=== PATIENT | male | born 1965 | race Two or more races ===

== ENCOUNTER 2024-09-01 09:51 | Emergency (ER) | payer MEDICAID ==
[~2024-09-01] VITALS: Ht 167.6 cm; Wt 109.1 kg
[2024-09-01] MEDS ORDERED: METF-1211 PO (10:01)
[2024-09-01] MEDS ORDERED: ATOR10TA PO (10:01)
[2024-09-01] MEDS ORDERED: LOSA-381 PO (10:01)
[2024-09-01 10:21] LABS: COVID AG,FIA SOURCE NASAL SWAB
[2024-09-01 10:26] LABS: BASOPHILS % (AUTO) 0.6 % (0.0-2.0); EOSINOPHILS % (AUTO) 2.1 % (1.0-6.0); HEMATOCRIT 42.4 % (41-53); HEMOGLOBIN 14.3 g/dL (13.5-17.5); LYMPHOCYTES # (AUTO) 1.2 K/uL (1.0-4.8); LYMPHOCYTES % (AUTO) 24.6 % (22.0-44.0); MEAN CORPUSCULAR HEMOGLOBIN 33.1 pg (26.0-34.0); MEAN CORPUSCULAR HGB CONC 33.7 G/dL (31.0-37.0); MEAN CORPUSCULAR VOLUME 98 fL (80-100); MONOCYTES # (AUTO) 0.4 K/uL (0.1-1.0); MONOCYTES % (AUTO) 7.5 % (2.0-9.0); NEUTROPHILS # (AUTO) 3.2 K/uL (1.8-7.7); NEUTROPHILS % (AUTO) 65.2 % (40.0-70.0); PLATELET COUNT (AUTO) 223 K/uL (150-450); RED BLOOD CELL COUNT(AUTO) 4.32 MIL/uL (4.50-5.90); RED CELL DISTRIBUTION WIDTH 14.5 % (11.5-14.5); WHITE BLOOD COUNT (AUTO) 4.8 K/uL (4.5-11.0)
[2024-09-01 10:32] LABS: CALCIUM, TOTAL 9.6 mg/dL (8.8-10.5); CREATININE 1.97 mg/dL (0.60-1.30); POTASSIUM 3.5 mmol/L (3.5-5.1)
[2024-09-01 10:40] LABS: TROPONIN I-HIGH SENSITIVITY 11 ng/L (<76)
[2024-09-01 10:41] LABS: ALBUMIN 3.8 g/dL (3.4-5.0); BILIRUBIN,DIRECT 0.3 mg/dL (0.00-0.20); BILIRUBIN,TOTAL 0.9 mg/dL (0.1-1.0); TOTAL PROTEIN, SERUM 7.9 g/dL (6.4-8.2)
[2024-09-01 11:01] LABS: SARS-COV2 (COVID) ANTIGEN,FIA Negative (Negative)
[2024-09-01 11:02] LABS: INFLUENZA TYPE A NEGATIVE FOR TYPE A (NEGATIVE); INFLUENZA TYPE B NEGATIVE FOR TYPE B (NEGATIVE)
[2024-09-01] MEDS: SODIUM CHLORIDE 0.9% 1,000 ML IV ONE (11:14)
[2024-09-01] MEDS: ACETAMINOPHEN 500 MG TABLET PO ONE (11:16)
[2024-09-01 11:45] LABS: THYROID STIMULATING HORMONE 0.66 uIU/mL (0.36-3.74)
[2024-09-01 13:35] LABS: APPEARANCE,URINE CLEAR (CLEAR); BILIRUBIN,URINE NEGATIVE (NEGATIVE); COLOR,URINE YELLOW (YELLOW); GLUCOSE, URINE (UA) 300-500 mg/dL (NEGATIVE); KETONES,URINE NEGATIVE (NEGATIVE); LEUKOCYTE ESTERASE ,URINE NEGATIVE (NEGATIVE); NITRATE,URINE NEGATIVE (NEGATIVE); OCCULT BLOOD,URINE NEGATIVE (NEGATIVE); PH,URINE 5.5 (5.0-8.0); PROTEIN,URINE NEGATIVE (NEGATIVE); SPECIFIC GRAVITIY, URINE 1.017 (1.003-1.030); UROBILINOGEN,URINE <=1.0 mg/dL (<=1.0)
[2024-09-01 13:47] LABS: BACTERIA,URINE None Seen /HPF (None Seen); RBC,URINE None Seen /HPF (0-2); WBC,URINE None Seen /HPF (0-5)
[2024-09-01 14:33] VITALS: BP 120/87; PULSE 92; RESP 18; TEMP 99.8; O2SAT 98
== END 2024-09-01 14:50 | disposition home or self-care (01) ==
LOC: EMS 09:51
DX: R11.2 Nausea with vomiting, unspecified (principal); J06.9 Acute upper respiratory infection, unspecified; E11.9 Type 2 diabetes mellitus without complications; I10 Essential (primary) hypertension; E78.00 Pure hypercholesterolemia, unspecified; Z79.899 Other long term (current) drug therapy; Z20.822 Contact with and (suspected) exposure to COVID-19
CPT/HCPCS: 99285; 96360; 71045; 87426; 80048; 80076; 81001; 83690; 83880; 87420; 84443; 84484; 85025; 87804; 36415; 93005; J7030

== ENCOUNTER 2025-02-18 12:23 | Emergency (ER) | payer MEDICAID ==
[~2025-02-18] VITALS: Ht 170.2 cm; Wt 115.9 kg
[~2025-02-18 12:23] MED LIST: ATOR10TA PO; LOSA-381 PO; METF-1211 PO
[2025-02-18] MEDS ORDERED: HYDR25TA2 PO (12:36)
[2025-02-18 12:44] VITALS: BP 132/80; PULSE 84; RESP 18; TEMP 98.4; O2SAT 100
[2025-02-18] MEDS: METHOCARBAMOL 500 MG TABLET PO ONE (14:26)
[2025-02-18] MEDS: ONDANSETRON 4 MG TABLET PO ONE (14:26)
[2025-02-18] MEDS: KETOROLAC TROMETHAMINE 60 MG/2 ML VIAL IM ONE (14:26)
[2025-02-18] MEDS ORDERED: IBUP-1492 PO (14:53)
== END 2025-02-18 15:13 | disposition home or self-care (01) ==
LOC: EMS 12:30
DX: R51.9 Headache, unspecified (principal); R19.7 Diarrhea, unspecified; R11.10 Vomiting, unspecified; E11.9 Type 2 diabetes mellitus without complications; I10 Essential (primary) hypertension; E78.00 Pure hypercholesterolemia, unspecified; Z79.899 Other long term (current) drug therapy
CPT/HCPCS: 99283; 82962; 96372; J1885; Q0162

== ENCOUNTER 2025-02-22 18:28 | Emergency (ER) | payer MEDICAID ==
[~2025-02-22] VITALS: Ht 177.8 cm; Wt 113.6 kg
[~2025-02-22 18:28] MED LIST changes: +HYDR25TA2 PO; +IBUP-1492 PO
[2025-02-22 18:36] VITALS: TEMP 97.4
[2025-02-22 20:00] LABS: BASOPHILS % (AUTO) 0.7 % (0.0-2.0); EOSINOPHILS % (AUTO) 3.3 % (1.0-6.0); HEMATOCRIT 41.9 % (41-53); HEMOGLOBIN 13.9 g/dL (13.5-17.5); LYMPHOCYTES # (AUTO) 1.4 K/uL (1.0-4.8); LYMPHOCYTES % (AUTO) 22.8 % (22.0-44.0); MEAN CORPUSCULAR HEMOGLOBIN 32.5 pg (26.0-34.0); MEAN CORPUSCULAR HGB CONC 33.2 G/dL (31.0-37.0); MEAN CORPUSCULAR VOLUME 98 fL (80-100); MONOCYTES # (AUTO) 0.7 K/uL (0.1-1.0); MONOCYTES % (AUTO) 11.6 % (2.0-9.0); NEUTROPHILS # (AUTO) 3.8 K/uL (1.8-7.7); NEUTROPHILS % (AUTO) 61.6 % (40.0-70.0); PLATELET COUNT (AUTO) 189 K/uL (150-450); RED BLOOD CELL COUNT(AUTO) 4.29 MIL/uL (4.50-5.90); RED CELL DISTRIBUTION WIDTH 14.2 % (11.5-14.5); WHITE BLOOD COUNT (AUTO) 6.2 K/uL (4.5-11.0)
[2025-02-22 20:11] LABS: CALCIUM, TOTAL 9.7 mg/dL (8.8-10.5); CREATININE 2.76 mg/dL (0.60-1.30); POTASSIUM 3.9 mmol/L (3.5-5.1)
[2025-02-22 21:10] LABS: GLUCOMETER DEV NAME(LOC) ERT.6; GLUCOSE,POINT OF CARE 138 MG/DL (70-110)
[2025-02-22] MEDS: ONDANSETRON 4 MG TABLET PO ONE (22:47)
[2025-02-22 23:48] LABS: ALBUMIN 3.9 g/dL (3.4-5.0); BILIRUBIN,DIRECT 0.2 mg/dL (0.00-0.20); BILIRUBIN,TOTAL 0.9 mg/dL (0.1-1.0); TOTAL PROTEIN, SERUM 7.5 g/dL (6.4-8.2)
[2025-02-23] MEDS ORDERED: ONDA-104 PO (00:01)
[2025-02-23 00:02] VITALS: BP 121/71; PULSE 76; RESP 17; O2SAT 95
== END 2025-02-23 00:16 | disposition home or self-care (01) ==
LOC: EMS 18:28
DX: K52.9 Noninfective gastroenteritis and colitis, unspecified (principal); E11.9 Type 2 diabetes mellitus without complications; I10 Essential (primary) hypertension; E78.00 Pure hypercholesterolemia, unspecified; Z79.899 Other long term (current) drug therapy
CPT/HCPCS: 99284; 80048; 80076; 82962; 83690; 85025; 36415; 93005; Q0162